=== PATIENT | male | born 1990 | race Asian ===

== ENCOUNTER 2018-09-29 21:28 | Emergency (ER) | payer SELFPAY ==
[~2018-09-29] VITALS: Ht 180.3 cm; Wt 72.3 kg
[2018-09-29 21:45] VITALS: BP 129/90
[2018-09-29] MEDS ORDERED: IBUPROFEN 600 MG TAB PO ONE (23:00)
[2018-09-29] MEDS ORDERED: TETANUS-DIPTH-ACEL PERTUSSIS 0.5ML SYRG IM ONE (23:00)
== END 2018-09-29 23:30 | disposition home or self-care (01) ==
LOC: ER 21:28
DX: S60.022A Contusion of left index finger without damage to nail, initial encounter (principal); S69.92XA Unspecified injury of left wrist, hand and finger(s), initial encounter; X58.XXXA Exposure to other specified factors, initial encounter; Y93.89 Activity, other specified; Y99.8 Other external cause status; Y92.89 Other specified places as the place of occurrence of the external cause
CPT/HCPCS: 29130; 73120; 90471; 90715